=== PATIENT | male | born 1950 | race Hispanic/Latino ===

== ENCOUNTER → 2019-03-29 | Outpatient (CLI) | payer OTHER | END | disposition home or self-care (01) | LOC: RAH 14:14 | PROVIDERS: ATTEND Internal Medicine Cardiovascular Disease | DX: Z13.6 Encounter for screening for cardiovascular disorders (principal) | CPT/HCPCS: 75571 ==

== ENCOUNTER 2019-05-07 07:16 | Observation (INO) | payer OTHER ==
[2019-05-03 14:35] VITALS: BP 156/85
[2019-05-03 15:03] LABS: BASOPHILS % (AUTO) 0.7 % (0.0-5.0); EOSINOPHILS % (AUTO) 3.9 % (0.0-8.0); HEMATOCRIT 48.1 % (42-54); LYMPHOCYTES % (AUTO) 16.4 % (21.0-51.0); MEAN CORPUSCULAR HEMOGLOBIN 30.6 pg (27.0-33.0); MEAN CORPUSCULAR HGB CONC 33.3 g/dL (32.0-36.0); MEAN CORPUSCULAR VOLUME 91.8 fL (79-99); MONOCYTES % (AUTO) 7.3 % (3.0-13.0); NEUTROPHILS % (AUTO) 71.7 % (40.0-77.0); PLATELET COUNT (AUTO) 261 K/uL (130-400); RED BLOOD CELL COUNT(AUTO) 5.24 MIL/uL (4.50-6.20); RED CELL DISTRIBUTION WIDTH 14.2 % (11.0-15.5); WHITE BLOOD COUNT (AUTO) 8.2 K/uL (4.8-10.8)
[2019-05-03 15:06] LABS: APPEARANCE,URINE Clear (CLEAR); BILIRUBIN,URINE Negative (NEGATIVE); COLOR,URINE Yellow (YELLOW); GLUCOSE, URINE (UA) Negative (NEGATIVE); KETONES,URINE Negative (NEGATIVE); LEUKOCYTE ESTERASE ,URINE Negative (NEGATIVE); NITRATE,URINE Negative (NEGATIVE); OCCULT BLOOD,URINE Negative (NEGATIVE); PROTEIN,URINE Negative (NEGATIVE)
[2019-05-03 15:15] LABS: PARTIAL THROMBOPLASTIN TIME 29.4 SEC (26.3-35.5); PROTHROMBIN TIME 10.5 SEC (9.6-11.6)
[2019-05-03 15:18] LABS: POTASSIUM 4.3 mmol/L (3.5-5.1)
[2019-05-07] VITALS (12 sets, daily range): BP systolic 109–128; BP diastolic 68–81
[~2019-05-07] VITALS: Ht 175.3 cm; Wt 80.7 kg
[~2019-05-07 07:16] MED LIST: ASPI-1012 PO; ATOR40TA71 PO; BRIM5DRO4 OU; LATA7.5D OU; LISI-613 PO; METO-408 PO; PANT40TA25 PO; SODIUM CHLORIDE 0.9% 500ML 500 ML IV SCH
[2019-05-07] MEDS ORDERED: SODIUM CHLORIDE 0.9% 1000ML 1,000 ML IV ONE (07:32)
[2019-05-07] MEDS ORDERED: IOHEXOL 350 MG/ML 100ML INFUS..BTL IV ONE (08:38)
[2019-05-07] MEDS ORDERED: NITROGLYCERIN 5 MG/ML 10 ML VIAL IV ONE (08:38)
[2019-05-07] MEDS ORDERED: IOHEXOL-350 50ML VIAL IV ONE (08:38)
[2019-05-07] MEDS ORDERED: SODIUM BICARB 50MEQ 50ML VIAL ONE (08:38)
[2019-05-07] MEDS ORDERED: LIDOCAINE HCL 2% 20ML ONE (08:39)
[2019-05-07] MEDS ORDERED: MIDAZOLAM HCL 1 MG/ML 2ML VIAL ONE ×2 (08:59→09:32)
[2019-05-07] MEDS ORDERED: MEPERIDINE-PF 25 MG/ML SYG ONE ×2 (09:00→09:32)
[2019-05-07] MEDS ORDERED: HEPARIN SODIUM 1000UNIT/ML 10ML VIAL ONE (09:29)
[2019-05-07] MEDS ORDERED: IOHEXOL-350 75 ML VIAL IV ONE (09:34)
[2019-05-07] MEDS ORDERED: ONDANSETRON HCL 4 MG/2 ML VIAL IVP PRN (10:30)
[2019-05-07] MEDS ORDERED: ACETAMINOPHEN-CODEINE 300/30MG TAB PO PRN ×2 (10:30)
--- NOTE | 2019-05-07 10:55 | NUR ---
Patient admitted from [employer] via bed. Awake alert and oriented 3 respirations even and unlabored. Denies any complaints of shortness of breath, denies any complaints of pain. Right groin soft, no ecchymosis or hematoma noted. Perclose dressing in place with light drainage noted. Feet warm pedal pulses strong bilaterally. Instructed patient on strict bed rest 4 hours as per M.D. orders, verbalized understanding. Bed placed in reverse Trendelenburg position for comfort. Side rails up 4, light within reach, verbalized ability to use. Room door open, patient visible from the nurse's station.
--- NOTE | 2019-05-07 11:10 | NUR ---
Continues on bedrest. Right groin soft no ecchymosis or hematoma. Call light within reach, verbalized ability to use.
[2019-05-07] MEDS: ***HM***(Metoprolol Succinate 12.5 MG) PO SCH ×2 (11:22→20:35)
--- NOTE | 2019-05-07 11:30 | NUR ---
Right groin soft, no hematoma. Elevated head of bed to 12 degrees. call at within reach. Spouse at bedside.
[2019-05-07] MEDS: SODIUM CHLORIDE 0.9% 1000ML 1,000 ML IV SCH ×2 (11:36→20:34)
--- NOTE | 2019-05-07 12:00 | NUR ---
Patient upset at not being able to set up for lunch. States, " how I supposed to eat if I am not able to sit up?" Reminded patient of strict bed rest as per M.D. orders. Patient's spouse at bedside attempting to calm patient down. Offered to provide sandwich today for patient, patient agreeable.
--- NOTE | 2019-05-07 12:20 | NUR ---
[place] tray arrived and spouse assisted patient to eat lunch.
--- NOTE | 2019-05-07 14:15 | NUR ---
Patient states he is going to sit up in bed regardless of bedrest orders. Reminded patient of risks associated with left heart cath procedure and bleeding from puncture site. States he has had back surgery in the past and cannot stay flat in bed much longer. Patient acknowledges risks involved with possible bleeding from right groin puncture site and request set up. Head of bed elevated to 30 degrees as per patient request. Call that within reach. Spouse at bedside.
--- NOTE | 2019-05-07 16:15 | NUR ---
Sitting up in bed with head of bed at a semi-calvin's position. Denies any further complaints of lower back discomfort. Right groin soft no ecchymosis or hematoma noted. Call at within reach. Spouse at bedside.
--- NOTE | 2019-05-07 18:30 | NUR ---
Patient transferred to room 202 via ambulatory. All belongings transferred to new room. Spouse in room with patient.
[2019-05-07] MEDS: TICAGRELOR 90 MG TABLET PO SCH (20:35)
[2019-05-07] MEDS: BRIMONIDINE TARTRATE 0.2% 5 ML BOTTLE OU SCH (20:36)
[2019-05-07] MEDS ORDERED: ATORVASTATIN CALCIUM 40 MG TABLET PO SCH (21:00)
[2019-05-07] MEDS ORDERED: LATANOPROST 2.5 ML DROPS OU SCH (21:00)
[2019-05-08 03:43] VITALS: BP 115/75
[2019-05-08 04:13] LABS: HEMATOCRIT 47.4 % (42-54); MEAN CORPUSCULAR HEMOGLOBIN 31.5 pg (27.0-33.0); MEAN CORPUSCULAR HGB CONC 34.3 g/dL (32.0-36.0); MEAN CORPUSCULAR VOLUME 91.7 fL (79-99); NUCLEATED RED BLOOD CELLS 0.1 % (0.0-0.19); PLATELET COUNT (AUTO) 214 K/uL (130-400); RED BLOOD CELL COUNT(AUTO) 5.16 MIL/uL (4.50-6.20); RED CELL DISTRIBUTION WIDTH 13.9 % (11.0-15.5); WHITE BLOOD COUNT (AUTO) 8.7 K/uL (4.8-10.8)
[2019-05-08 04:23] LABS: POTASSIUM 3.8 mmol/L (3.5-5.1)
[2019-05-08 07:00] VITALS: BP 128/85
[2019-05-08] MEDS: TICAGRELOR 90 MG TABLET PO SCH (08:31)
[2019-05-08] MEDS: ***HM***(Metoprolol Succinate 12.5 MG) PO SCH (08:36)
[2019-05-08] MEDS: BRIMONIDINE TARTRATE 0.2% 5 ML BOTTLE OU SCH (08:36)
[2019-05-08] MEDS ORDERED: ASPIRIN 81MG TAB.CHEW PO SCH (09:00)
[2019-05-08] MEDS ORDERED: PANTOPRAZOLE SODIUM 40 MG TABLET.DR PO SCH (09:00)
[2019-05-08] MEDS ORDERED: LISINOPRIL 20 MG TABLET PO SCH (09:00)
[2019-05-08] MEDS ORDERED: TICA90TA PO (09:26)
[2019-05-08] MEDS ORDERED: ASPI-1005 PO (09:26)
== END 2019-05-08 11:00 | disposition home or self-care (01) ==
LOC: DAH 07:16 → 2DH 07:17 → DAH 07:17 → 2AH 18:27
PROVIDERS: ADMIT Internal Medicine; ATTEND Internal Medicine
DX: I25.119 Atherosclerotic heart disease of native coronary artery with unspecified angina pectoris (principal); I10 Essential (primary) hypertension; E78.5 Hyperlipidemia, unspecified; K21.9 Gastro-esophageal reflux disease without esophagitis; F41.9 Anxiety disorder, unspecified; F17.200 Nicotine dependence, unspecified, uncomplicated; Z79.899 Other long term (current) drug therapy; Z79.01 Long term (current) use of anticoagulants
CPT/HCPCS: 36415 ×2; 71045; 80048 ×2; 80061; 81003; 85025; 85027; 85610; 85730; 93005; 93458; A4606; C1725 ×2; C1760; C1769; C1874 ×2; C1887; C1894 ×2; C9600; C9607; G0378 ×28; J1644 ×2; J2175 ×2; J2250 ×2; J3490 ×3; J7030 ×3; Q9965; Q9967 ×3; 99156; 99157

== ENCOUNTER 2019-06-02 16:41 | Emergency (ER) | payer OTHER ==
[~2019-06-02 16:41] MED LIST changes: +ASPI-1005 PO; -ASPI-1012 PO; -SODIUM CHLORIDE 0.9% 500ML 500 ML IV SCH; +TICA90TA PO
[2019-06-02] MEDS ORDERED: ACETAMINOPHEN ELIXIR 650 MG/20.3 ML UDCUP ONE (17:27)
[2019-06-02 17:50] LABS: BASOPHILS % (AUTO) 1.2 % (0.0-5.0); EOSINOPHILS % (AUTO) 4.5 % (0.0-8.0); HEMATOCRIT 45.1 % (42-54); LYMPHOCYTES % (AUTO) 22.3 % (21.0-51.0); MEAN CORPUSCULAR HEMOGLOBIN 30.8 pg (27.0-33.0); MEAN CORPUSCULAR HGB CONC 33.6 g/dL (32.0-36.0); MEAN CORPUSCULAR VOLUME 91.7 fL (79-99); MONOCYTES % (AUTO) 7.6 % (3.0-13.0); NEUTROPHILS % (AUTO) 64.4 % (40.0-77.0); PLATELET COUNT (AUTO) 240 K/uL (130-400); RED BLOOD CELL COUNT(AUTO) 4.92 MIL/uL (4.50-6.20); RED CELL DISTRIBUTION WIDTH 13.4 % (11.0-15.5); WHITE BLOOD COUNT (AUTO) 7.7 K/uL (4.8-10.8)
[2019-06-02 18:16] LABS: POTASSIUM 3.8 mmol/L (3.5-5.1)
[2019-06-02 18:20] LABS: ALBUMIN 3.5 g/dL (3.5-5.0); BILIRUBIN,TOTAL 0.3 mg/dL (0.2-1.0); TOTAL PROTEIN, SERUM 6.4 g/dL (6.0-8.3)
[2019-06-02 19:28] LABS: APPEARANCE,URINE Clear (CLEAR); BILIRUBIN,URINE Negative (NEGATIVE); COLOR,URINE Yellow (YELLOW); GLUCOSE, URINE (UA) Negative (NEGATIVE); KETONES,URINE Negative (NEGATIVE); LEUKOCYTE ESTERASE ,URINE Negative (NEGATIVE); NITRATE,URINE Negative (NEGATIVE); OCCULT BLOOD,URINE Negative (NEGATIVE); PH,URINE 6.5 (5.0-8.0); PROTEIN,URINE Negative (NEGATIVE)
== END 2019-06-02 20:13 | disposition home or self-care (01) ==
LOC: EDH 16:41
DX: J32.9 Chronic sinusitis, unspecified (principal); R51 Headache; T50.995A Adverse effect of other drugs, medicaments and biological substances, initial encounter; Y92.89 Other specified places as the place of occurrence of the external cause
CPT/HCPCS: 36415; 70450; 80053; 81003; 84484; 85025; 93005

== ENCOUNTER 2020-01-03 05:32 | Day surgery (SDC) | payer OTHER ==
[2020-01-03] MEDS ORDERED: SODIUM CHLORIDE 0.9% 1000ML 1,000 ML IV ONE (06:25)
[2020-01-03 06:28] VITALS: BP 111/71
[2020-01-03] MEDS ORDERED: NITR0.4T50 SL (07:35)
[2020-01-03] MEDS ORDERED: PROPOFOL 10 MG/ML 20ML VIAL IV ONE (07:57)
[2020-01-03] MEDS ORDERED: PHENYLEPHRINE HCL 10 MG/ML 1ML VIAL IV ONE (08:02)
[2020-01-03] MEDS ORDERED: GLYCOPYRROLATE 0.2 MG/ML 5 ML VIAL ONE (08:07)
[2020-01-03 08:32] VITALS: BP 99/67
[2020-01-03 08:37] VITALS: BP 106/69
[2020-01-03 08:42] VITALS: BP 110/72
== END 2020-01-03 09:02 | disposition home or self-care (01) ==
LOC: DAH 05:32 → ENDO 05:32
PROVIDERS: ATTEND Internal Medicine Gastroenterology
DX: R19.5 Other fecal abnormalities (principal); K63.5 Polyp of colon; K57.30 Diverticulosis of large intestine without perforation or abscess without bleeding; I10 Essential (primary) hypertension; E78.5 Hyperlipidemia, unspecified; F41.9 Anxiety disorder, unspecified; F32.9 Major depressive disorder, single episode, unspecified; K21.9 Gastro-esophageal reflux disease without esophagitis; I25.10 Atherosclerotic heart disease of native coronary artery without angina pectoris; Z86.010 Personal history of colon polyps; Z95.5 Presence of coronary angioplasty implant and graft; Z79.899 Other long term (current) drug therapy
CPT/HCPCS: 45380; 45381; 45385; A4215; A4221; A4222; A4223; A4606; A4615; A4663; J2370; J2704; J3490; J7030

== ENCOUNTER → 2020-08-10 | Outpatient (CLI) | payer OTHER ==
[~2020-08-10] MED LIST changes: +NITR0.4T50 SL; -PANT40TA25 PO; +PANT40TA54 PO
== END | disposition home or self-care (01) ==
LOC: SHCH 14:23
PROVIDERS: ATTEND Internal Medicine Cardiovascular Disease
DX: R01.1 Cardiac murmur, unspecified (principal)
CPT/HCPCS: 93306; 93356

== ENCOUNTER → 2022-05-17 | Outpatient (CLI) | payer OTHER ==
[~2022-05-17] MED LIST changes: -LISI-613 PO; +LISI20TA24 PO
== END | disposition home or self-care (01) ==
LOC: SHCH 14:17
PROVIDERS: ATTEND Internal Medicine Cardiovascular Disease
DX: I35.8 Other nonrheumatic aortic valve disorders (principal); I10 Essential (primary) hypertension; E78.5 Hyperlipidemia, unspecified
CPT/HCPCS: 93306

== ENCOUNTER 2022-06-13 07:17 | Day surgery (SDC) | payer OTHER ==
[2022-06-08 10:03] VITALS: BP 137/67
[2022-06-08 10:12] LABS: BASOPHILS % (AUTO) 1.3 % (0.0-5.0); EOSINOPHILS % (AUTO) 3.2 % (0.0-8.0); HEMATOCRIT 49.5 % (42-54); LYMPHOCYTES % (AUTO) 18.3 % (21.0-51.0); MEAN CORPUSCULAR HGB CONC 33.7 g/dL (32.0-36.0); MEAN CORPUSCULAR VOLUME 88.9 fL (79-99); MONOCYTES % (AUTO) 7.9 % (3.0-13.0); PLATELET COUNT (AUTO) 255 K/uL (130-400); RED BLOOD CELL COUNT(AUTO) 5.57 MIL/uL (4.50-6.20); RED CELL DISTRIBUTION WIDTH 12.6 % (11.0-15.5); WHITE BLOOD COUNT (AUTO) 6.9 K/uL (4.8-10.8)
[2022-06-08 10:21] LABS: CREATININE 0.9 mg/dL (0.5-1.5); POTASSIUM 4.7 mmol/L (3.5-5.1)
[2022-06-08 10:22] LABS: PROTHROMBIN TIME 10.9 SEC (9.6-11.6)
[2022-06-08 10:23] LABS: APPEARANCE,URINE Clear (CLEAR); BILIRUBIN,URINE Negative (NEGATIVE); COLOR,URINE Yellow (YELLOW); GLUCOSE, URINE (UA) Negative (NEGATIVE); KETONES,URINE Negative (NEGATIVE); LEUKOCYTE ESTERASE ,URINE Negative (NEGATIVE); NITRATE,URINE Negative (NEGATIVE); OCCULT BLOOD,URINE Negative (NEGATIVE); PH,URINE 6.5 (5.0-8.0); PROTEIN,URINE Negative (NEGATIVE)
[2022-06-08 10:23] LABS: PARTIAL THROMBOPLASTIN TIME 27.7 SEC (26.3-35.5)
[2022-06-13] VITALS (11 sets, daily range): BP systolic 113–140; BP diastolic 62–75
[~2022-06-13] VITALS: Ht 172.7 cm; Wt 83.0 kg
[~2022-06-13 07:17] MED LIST changes: +0.9% NACL 500ML IV.SOLN 500 ML IV SCH; -BRIM5DRO4 OU; +CLOP75TA32 PO; -LATA7.5D OU; -PANT40TA54 PO; -TICA90TA PO; +UMEC1DIS IH
[2022-06-13] MEDS ORDERED: MEPERIDINE-PF 25 MG/ML SYG ONE ×2 (09:41→09:48)
[2022-06-13] MEDS ORDERED: MIDAZOLAM HCL 1 MG/ML 2ML VIAL ONE ×2 (09:41→09:48)
[2022-06-13] MEDS ORDERED: SODIUM BICARB 50MEQ 50ML VIAL 50 ML ONE (09:41)
[2022-06-13] MEDS ORDERED: LIDOCAINE HCL 400MG/20ML VIAL ONE (09:41)
[2022-06-13] MEDS ORDERED: IOHEXOL 350 MG/ML 100ML INFUS..BTL IV ONE (09:42)
[2022-06-13] MEDS ORDERED: IOHEXOL-350 50ML VIAL IV ONE (09:42)
[2022-06-13] MEDS ORDERED: NITROGLYCERIN 50MG VIAL ONE (09:42)
[2022-06-13] MEDS ORDERED: HEPARIN 10,000 UNIT/10ML (1,000 UNIT/ML) VIAL ONE (09:43)
[2022-06-13] MEDS ORDERED: ATROPINE 1MG SYG IVP ONE (09:54)
[2022-06-13] MEDS ORDERED: 0.9%NACL 1000ML 1,000 ML IV SCH (10:30)
[2022-06-13] MEDS ORDERED: ACETAMINOPHEN 500 MG TABLET ONE (11:46)
== END 2022-06-13 15:10 | disposition home or self-care (01) ==
LOC: DAH 07:17
PROVIDERS: ATTEND Internal Medicine Cardiovascular Disease
DX: I25.119 Atherosclerotic heart disease of native coronary artery with unspecified angina pectoris (principal); I10 Essential (primary) hypertension; E78.5 Hyperlipidemia, unspecified; F41.9 Anxiety disorder, unspecified; F32.A Depression, unspecified; F17.200 Nicotine dependence, unspecified, uncomplicated; K21.9 Gastro-esophageal reflux disease without esophagitis; J44.9 Chronic obstructive pulmonary disease, unspecified; Z79.82 Long term (current) use of aspirin; Z79.01 Long term (current) use of anticoagulants; Z79.899 Other long term (current) drug therapy; Z98.890 Other specified postprocedural states; Z95.5 Presence of coronary angioplasty implant and graft
CPT/HCPCS: 80048; 85025; 85610; 85730; 81003; 36415; 71045; 93005; 93458; C1894; C1760; J3490 ×3; J2250 ×2; J2175 ×2; J1644; Q9967; A4215; A4222; A4221; A4663; A4216; A4606; Q9965; A4223 ×3; 99156; 99157; J0461

== ENCOUNTER → 2022-11-22 | Outpatient (CLI) | payer OTHER ==
[~2022-11-22] MED LIST changes: -0.9% NACL 500ML IV.SOLN 500 ML IV SCH
== END | disposition home or self-care (01) ==
LOC: RAH 07:36
PROVIDERS: ATTEND Internal Medicine Gastroenterology
DX: R10.13 Epigastric pain (principal)
CPT/HCPCS: 76700

== ENCOUNTER → 2023-03-14 | Outpatient (CLI) | payer OTHER | END | disposition home or self-care (01) | LOC: SHCH 14:05 | PROVIDERS: ATTEND Internal Medicine Cardiovascular Disease | DX: I25.10 Atherosclerotic heart disease of native coronary artery without angina pectoris (principal); I73.9 Peripheral vascular disease, unspecified | CPT/HCPCS: 93925 ==

== ENCOUNTER → 2024-02-05 | Outpatient (CLI) | payer OTHER ==
[2024-02-05] MEDS: REGADENOSON 0.4 MG/5 ML PF SYG IVP ONE (14:48)
== END ==
LOC: SHCH 08:30
PROVIDERS: ATTEND Internal Medicine Cardiovascular Disease
DX: R07.9 Chest pain, unspecified (principal)
CPT/HCPCS: 78452; 96374; 93017; J2785; A9500 ×2

== ENCOUNTER 2024-03-19 09:43 | Day surgery (SDC) | payer OTHER ==
[2024-03-18 10:06] LABS: BASOPHILS # (AUTO) 0.06 K/uL (0.00-0.20); BASOPHILS % (AUTO) 0.9 % (0.0-5.0); EOSINOPHILS # (AUTO) 0.23 K/uL (0.00-0.70); EOSINOPHILS % (AUTO) 3.3 % (0.0-8.0); HEMATOCRIT 49.5 % (42-54); IMMATURE GRANULOCYTE ABSOLUTE 0.04 K/uL (0-1); LYMPHOCYTES # (AUTO) 1.1 K/uL (1.0-4.8); LYMPHOCYTES % (AUTO) 15.1 % (21.0-51.0); MEAN CORPUSCULAR HEMOGLOBIN 31.9 pg (27.0-33.0); MEAN CORPUSCULAR HGB CONC 33.5 g/dL (32.0-36.0); MEAN CORPUSCULAR VOLUME 95.2 fL (79-99); MONOCYTES # (AUTO) 0.6 K/uL (0.1-1.0); MONOCYTES % (AUTO) 8.8 % (3.0-13.0); NEUTROPHILS % (AUTO) 71.3 % (40.0-77.0); PLATELET COUNT (AUTO) 260 K/uL (130-400); RED CELL DISTRIBUTION WIDTH 12.8 % (11.0-15.5)
[2024-03-18 10:08] LABS: APPEARANCE,URINE CLEAR (CLEAR); BILIRUBIN,URINE NEGATIVE (NEGATIVE); COLOR,URINE YELLOW (YELLOW); GLUCOSE, URINE (UA) NEGATIVE (NEGATIVE); KETONES,URINE NEGATIVE (NEGATIVE); LEUKOCYTE ESTERASE ,URINE NEGATIVE Leu/uL (NEGATIVE); NITRATE,URINE NEGATIVE (NEGATIVE); OCCULT BLOOD,URINE NEGATIVE (NEGATIVE); PH,URINE 7.5 (5.0-8.0); PROTEIN,URINE NEGATIVE (NEGATIVE); UROBILINOGEN,URINE 0.2 mg/dL (0.2-1.0)
[2024-03-18 10:13] LABS: CREATININE 0.9 mg/dL (0.5-1.3); POTASSIUM 4.6 mmol/L (3.5-5.1)
[2024-03-18 10:16] LABS: INR 0.94 (0.85-1.15); PROTHROMBIN TIME 11.1 SEC (9.6-11.6)
[2024-03-18 10:18] LABS: PARTIAL THROMBOPLASTIN TIME 28.8 SEC (26.3-35.5)
[2024-03-18 10:27] LABS: ADD UA MICROSCOPIC NO
[2024-03-18 10:34] VITALS: BP 121/69; PULSE 55; RESP 19
[2024-03-18 11:45] LABS: B-TYPE NATRIURETIC PEPTIDE 31 pg/mL (0-100)
[2024-03-19] VITALS (11 sets, daily range): BP systolic 100–141; BP diastolic 58–80; PULSE 50–61; RESP 13–17
[~2024-03-19] VITALS: Ht 170.2 cm; Wt 82.2 kg
[~2024-03-19 09:43] MED LIST changes: -CLOP75TA32 PO; -LISI20TA24 PO; +LOSA25TA41 PO; +RANO10005 PO; -UMEC1DIS IH
[2024-03-19] MEDS: 0.9%NACL 1000ML 1,000 ML IV ONE (10:28)
[2024-03-19] MEDS ORDERED: SODIUM BICARB 50MEQ 50ML VIAL 50 ML ONE (13:05)
[2024-03-19] MEDS ORDERED: IOHEXOL-350 50ML VIAL IV ONE (13:05)
[2024-03-19] MEDS ORDERED: LIDOCAINE HCL 400MG/20ML VIAL ONE (13:05)
[2024-03-19] MEDS ORDERED: NICARDIPINE 25MG INJ IV ONE (13:05)
[2024-03-19] MEDS ORDERED: HEPARIN 10,000 UNIT/10ML (1,000 UNIT/ML) VIAL ONE (13:05)
[2024-03-19] MEDS ORDERED: IOHEXOL 350 MG/ML 100ML INFUS..BTL IV ONE ×2 (13:05→13:13)
[2024-03-19] MEDS ORDERED: NITROGLYCERIN 50MG VIAL ONE (13:06)
[2024-03-19] MEDS ORDERED: MEPERIDINE-PF 25 MG/ML SYG ONE ×2 (13:25→13:42)
[2024-03-19] MEDS ORDERED: MIDAZOLAM HCL 1 MG/ML 2ML VIAL ONE ×2 (13:25→13:42)
[2024-03-19] MEDS: 0.9%NACL 1000ML 1,000 ML IV SCH (15:06)
== END 2024-03-19 18:30 | disposition home or self-care (01) ==
LOC: DAH 09:43
PROVIDERS: ATTEND Internal Medicine Cardiovascular Disease
DX: R94.39 Abnormal result of other cardiovascular function study (principal); I25.119 Atherosclerotic heart disease of native coronary artery with unspecified angina pectoris; I10 Essential (primary) hypertension; E78.00 Pure hypercholesterolemia, unspecified; F41.9 Anxiety disorder, unspecified; J44.9 Chronic obstructive pulmonary disease, unspecified; K21.9 Gastro-esophageal reflux disease without esophagitis; F32.A Depression, unspecified; Z87.891 Personal history of nicotine dependence; Z95.5 Presence of coronary angioplasty implant and graft; Z79.82 Long term (current) use of aspirin; Z79.899 Other long term (current) drug therapy; Z98.890 Other specified postprocedural states
CPT/HCPCS: 80048; 83880; 85025; 85610; 85730; 81003; 36415; 71045; 93005; 93458; C1769; A4649; C1894; Q9965; J3490 ×4; J7030; J1644 ×2; J2250 ×2; J2175 ×2; Q9967; A4215; A4222; A4221; A4663; A4216; A4606; A4223 ×3; 96360; 96361; 99156; 99157

== ENCOUNTER → 2024-04-03 | Outpatient (CLI) | payer OTHER | END | disposition home or self-care (01) | LOC: SHCH 12:24 | PROVIDERS: ATTEND Internal Medicine Cardiovascular Disease | DX: I87.2 Venous insufficiency (chronic) (peripheral) (principal) | CPT/HCPCS: 93971 ==

== ENCOUNTER → 2024-04-23 | Outpatient (CLI) | payer OTHER | END | disposition home or self-care (01) | LOC: RAH 07:42 | PROVIDERS: ATTEND Internal Medicine Gastroenterology | DX: R13.11 Dysphagia, oral phase (principal); R63.30 Feeding difficulties, unspecified | CPT/HCPCS: 74230; 92611 ==

== ENCOUNTER → 2025-03-05 | Outpatient (CLI) | payer OTHER | END | disposition home or self-care (01) | LOC: SHCH 14:51 | PROVIDERS: ATTEND Internal Medicine Cardiovascular Disease | DX: I08.3 Combined rheumatic disorders of mitral, aortic and tricuspid valves (principal); I11.9 Hypertensive heart disease without heart failure; R06.00 Dyspnea, unspecified | CPT/HCPCS: 93306 ==

== ENCOUNTER → 2025-03-07 | Outpatient (CLI) | payer OTHER ==
[2025-03-07] MEDS: REGADENOSON 0.4 MG/5 ML PF SYG IVP ONE (15:31)
== END | disposition home or self-care (01) ==
LOC: SHCH 07:57
PROVIDERS: ATTEND Internal Medicine Cardiovascular Disease
DX: R06.00 Dyspnea, unspecified (principal); E78.5 Hyperlipidemia, unspecified; I10 Essential (primary) hypertension; I25.10 Atherosclerotic heart disease of native coronary artery without angina pectoris; K21.9 Gastro-esophageal reflux disease without esophagitis; F41.9 Anxiety disorder, unspecified; J44.9 Chronic obstructive pulmonary disease, unspecified; Z79.899 Other long term (current) drug therapy
CPT/HCPCS: 78452; 93017; J2785; A9500 ×2

== ENCOUNTER 2025-04-30 06:36 | Day surgery (SDC) | payer OTHER ==
--- NOTE | 2025-04-29 09:37 | EKG ---
[facility] Test Date: 2025-04-29 Test Time: 09:29:32 Pat Name: LUPE HUMPHRIES Department: [facility] Room: [facility] Gender: M Cream Dipper: [id number] : 1950 Requested By: Natividad CAO Order Number: [id number] Reading MD: Ezequiel Newby Measurements Intervals [place] Rate: 59 P: 64 [place]: 172 QRS: 14 QRSD: 93 T: 92 QT: 414 QTc: 410 Interpretive Statements Sinus rhythm Nonspecific T abnormalities, lateral leads Compared to ECG 03/18/2024 08:50:17 T-wave abnormality now present Electronically Signed On 04-30-2025 10:37:50 CDT by Ezequiel Newby Please click the below link to view image of tracing.
[2025-04-29 09:41] LABS: BASOPHILS # (AUTO) 0.05 K/uL (0.00-0.20); BASOPHILS % (AUTO) 0.8 % (0.0-5.0); EOSINOPHILS # (AUTO) 0.21 K/uL (0.00-0.70); EOSINOPHILS % (AUTO) 3.3 % (0.0-8.0); HEMATOCRIT 48.6 % (42-54); IMMATURE GRANULOCYTE ABSOLUTE 0.01 K/uL (0-1); LYMPHOCYTES % (AUTO) 16.1 % (21.0-51.0); MEAN CORPUSCULAR HEMOGLOBIN 30.6 pg (27.0-33.0); MEAN CORPUSCULAR HGB CONC 33.5 g/dL (32.0-36.0); MEAN CORPUSCULAR VOLUME 91.2 fL (79-99); MONOCYTES # (AUTO) 0.5 K/uL (0.1-1.0); MONOCYTES % (AUTO) 7.3 % (3.0-13.0); NEUTROPHILS # (AUTO) 4.6 K/uL (1.8-7.7); NEUTROPHILS % (AUTO) 72.3 % (40.0-77.0); PLATELET COUNT (AUTO) 222 K/uL (130-400); RED BLOOD CELL COUNT(AUTO) 5.33 MIL/uL (4.50-6.20); RED CELL DISTRIBUTION WIDTH 12.7 % (11.0-15.5); WHITE BLOOD COUNT (AUTO) 6.3 K/uL (4.8-10.8)
[2025-04-29 09:49] LABS: CREATININE 0.9 mg/dL (0.5-1.3); POTASSIUM 4.1 mmol/L (3.5-5.1)
[2025-04-29 09:51] LABS: INR 1.07 (0.85-1.15); PROTHROMBIN TIME 11.3 SEC (9.6-11.6)
[2025-04-29 09:52] LABS: PARTIAL THROMBOPLASTIN TIME 28.7 SEC (26.3-35.5)
[2025-04-29 09:53] LABS: APPEARANCE,URINE CLEAR (CLEAR); BILIRUBIN,URINE NEGATIVE (NEGATIVE); COLOR,URINE YELLOW (YELLOW); GLUCOSE, URINE (UA) NEGATIVE (NEGATIVE); KETONES,URINE NEGATIVE (NEGATIVE); LEUKOCYTE ESTERASE ,URINE NEGATIVE Leu/uL (NEGATIVE); NITRATE,URINE NEGATIVE (NEGATIVE); OCCULT BLOOD,URINE NEGATIVE (NEGATIVE); PH,URINE 5.5 (5.0-8.0); PROTEIN,URINE 10 mg/dL (NEGATIVE); UROBILINOGEN,URINE 0.2 mg/dL (0.2-1.0)
[2025-04-29 09:55] LABS: ADD UA MICROSCOPIC YES
[2025-04-29 09:58] LABS: BACTERIA,URINE FEW /HPF (None Seen); MUCUS,URINE MOD LPF (None Seen); SQUAMOUS EPITHELIAL CELL,UR RARE /HPF (0-2)
[2025-04-29 10:00] VITALS: BP 131/69; PULSE 61; RESP 17; TEMP 97.9
[2025-04-29 10:10] LABS: B-TYPE NATRIURETIC PEPTIDE 23 pg/mL (0-100)
--- NOTE | 2025-04-29 12:07 | HMCIMG ---
CHEST 1VW HISTORY: No additional history given. COMPARISON: 03/18/2024 FINDINGS: A frontal projection of the chest was obtained. No acute pulmonary infiltrates is seen. The heart is borderline enlarged. Degenerative changes are seen. Aortic calcifications are seen. IMPRESSION: 1. No acute pulmonary infiltrate is seen.
[~2025-04-30] VITALS: Ht 170.2 cm; Wt 85.0 kg
[2025-04-30] VITALS (10 sets, daily range): BP systolic 99–118; BP diastolic 60–71; PULSE 46–62; RESP 12–18; TEMP 97.2–97.7
[2025-04-30] MEDS ORDERED: ISOS30TA92 PO (07:52)
[2025-04-30] MEDS ORDERED: ESOM40CA66 PO (07:52)
[2025-04-30] MEDS ORDERED: METO-408 PO (07:52)
[2025-04-30] MEDS ORDERED: ATOR-2 PO (07:52)
[2025-04-30] MEDS ORDERED: LOSA25TA41 PO (07:52)
[2025-04-30] MEDS: 0.9%NACL 1000ML 1,000 ML IV SCH (07:53)
[2025-04-30] MEDS ORDERED: SODIUM BICARB 50MEQ 50ML VIAL 50 ML ONE (09:44)
[2025-04-30] MEDS ORDERED: NITROGLYCERIN 50MG VIAL ONE (09:44)
[2025-04-30] MEDS ORDERED: HEParin-NS 1,000 UNIT/500 ML 1,000 ML IV ONE (09:44)
[2025-04-30] MEDS ORDERED: IOHEXOL 350 MG/ML 100ML INFUS..BTL IV ONE (09:44)
[2025-04-30] MEDS ORDERED: niCARDIpine 25MG INJ IV ONE (09:44)
[2025-04-30] MEDS ORDERED: LIDOCAINE HCL 400MG/20ML VIAL ONE (09:44)
[2025-04-30] MEDS ORDERED: HEParin 10,000 UNIT/10ML (1,000 UNIT/ML) VIAL ONE (09:44)
[2025-04-30] MEDS ORDERED: FENTanyl CITRate PF 50 MCG/1 ML 2ML VIAL ONE (10:16)
[2025-04-30] MEDS ORDERED: MIDAZOLAM HCL 1 MG/ML 2ML VIAL ONE ×2 (10:16→10:32)
[2025-04-30] MEDS ORDERED: ATROPINE 1MG SYG IVP ONE (10:18)
[2025-04-30] MEDS ORDERED: AEC81 PO (10:21)
[2025-04-30] MEDS ORDERED: 0.9%NACL 1000ML 1,000 ML IV SCH (11:30)
--- NOTE | 2025-04-30 11:46 | CCATH ---
PROCEDURES: * Left heart catheterization. * Selective diagnostic right and left coronary arteriogram. * Conscious sedation for 30 minutes. INDICATIONS: * Known history of coronary artery disease. * Status post multivessel stenting. * Abnormal Cardiolite. COMPLICATIONS: None. TOTAL CONTRAST: Approximately 40 mL. DESCRIPTION OF PROCEDURE: The patient was taken to the Cardiac Catheterization Lab after appropriate operative consent was signed. He was prepped and draped in the usual fashion. After conscious sedation was administered, the right radial artery region was infiltrated with 2% Xylocaine without epinephrine. A 6-[place] slender sheath was advanced in retrograde fashion by modified surgical technique. At this point, a TIG-4 catheter was advanced over an indwelling J-wire. This was placed in the left ventricular cavity. Left ventricular end-diastolic pressure measurement was obtained. Ventriculography was deferred. The patient had normal LV systolic function by noninvasive studies. There was no evidence of aortic stenosis. The catheter was then engaged in the ostium of the left main coronary artery. This was imaged in multiplane. The left main was a large vessel that was free of disease. It bifurcated in the LAD and circumflex. The LAD was moderately large vessel that gave rise to several diagonal and septal perforators. The first diagonal had a 60% lesion. The LAD had a stent in the segment just distal to the first diagonal that was widely patent. There were minimal luminal irregularities. Circumflex coronary was a large vessel that gave rise to a large branching obtuse marginal 1. The first obtuse marginal 1 had a smaller superior branch and a large inferior branch that had a patent stent that had been performed in 04/2019. The ongoing circ had a 50% lesion before an ectatic segment. This was a chronic finding. The distal OM2 and OM3 were patent. At this point, the catheter was withdrawn and engaged in the ostium of the right coronary artery. Imaging was obtained in multiple planes. The right coronary artery was a moderately large vessel that was tortuous in its distal course. It had a 30% mid-vessel lesion. It gave rise to PD and PLVB. There were no other significant stenotic lesions. At this point, the procedure was completed, the catheter was withdrawn over an indwelling wire. The radial band was applied with good hemostasis. The patient left the Cardiac Catheterization Lab in stable condition. FINAL IMPRESSION: * Coronary artery disease. * Patent LAD and obtuse marginal stents. * No aortic stenosis. PLAN: Continue medical management. TID: [id number] RECEIPT: [id number]
--- NOTE | 2025-04-30 14:14 | NUR ---
DC'd Vasc band to R Radial per protocol at 13:25 pm. No evidence of bleeding bruising or hematoma. Light pressure dressing applied. Educated Patient and Sister of Radial site expectations and precautions.Radial pulses intact. Neurovascularly intact. Ate 80 % of lunch. Denies c/o pain or problem. SB remains with bedside monitor intact. DTV. Provided urinal and privacy per Nurse, Ja PEREZ. Reported off in full to receiving Nurse, Eufemia PEREZ
== END 2025-04-30 15:15 | disposition home or self-care (01) ==
LOC: DAH 06:36
PROVIDERS: ATTEND Internal Medicine Cardiovascular Disease
DX: R94.39 Abnormal result of other cardiovascular function study (principal); I25.118 Atherosclerotic heart disease of native coronary artery with other forms of angina pectoris; I25.84 Coronary atherosclerosis due to calcified coronary lesion; K21.9 Gastro-esophageal reflux disease without esophagitis; I10 Essential (primary) hypertension; F41.9 Anxiety disorder, unspecified; R06.02 Shortness of breath; R07.89 Other chest pain; F32.A Depression, unspecified; J44.9 Chronic obstructive pulmonary disease, unspecified; E78.5 Hyperlipidemia, unspecified; F17.210 Nicotine dependence, cigarettes, uncomplicated; Z79.82 Long term (current) use of aspirin; Z95.5 Presence of coronary angioplasty implant and graft; Z79.899 Other long term (current) drug therapy; Z98.890 Other specified postprocedural states
CPT/HCPCS: 80048; 83880; 85025; 85610; 85730; 81001; 36415; 71045; 93005; 93458; 99156; 99157 ×2; A4649; C1894 ×2; C1769; J3010; J3490 ×4; J0461; J1644 ×2; J2250 ×2; Q9967; A4215; A4222; A4221; A4663; A4216; A4606; Q9965; A4223 ×3; 96360; 96361